=== PATIENT | female | born 1950 | race Caucasian/White ===

== ENCOUNTER 2017-05-05 10:02 | Inpatient (IN) | payer MEDICARE, BC ==
[~2017-05-05] VITALS: Ht 172.7 cm; Wt 85.6 kg
[2017-06-01] VITALS (11 sets, daily range): BP systolic 101–131; BP diastolic 58–71; PULSE 42–80; TEMP 97.8–98
[2017-06-02] VITALS (7 sets, daily range): BP systolic 105–136; BP diastolic 56–91; PULSE 58–81; TEMP 97.7–98.7
[2017-06-02 06:37] LABS: HEMATOCRIT 32.2 % (37.0-47.0)
[2017-06-03 05:00] VITALS: BP 142/60; PULSE 97; TEMP 98.9
[2017-06-03 06:51] LABS: HEMATOCRIT 32.3 % (37.0-47.0); HEMOGLOBIN 10.8 g/dl (12.5-16.0)
[2017-06-03] MEDS ORDERED: XARELTO10 MG PO (07:08)
[2017-06-03] MEDS ORDERED: NORCO 325 MG-7.1 TAB PO (07:10)
[2017-06-03] MEDS ORDERED: ROXICODONE 55 MG/TAB PO (07:11)
[2017-06-03 07:46] VITALS: BP 131/63; PULSE 93; TEMP 99.6
[2017-06-03 11:38] VITALS: BP 125/50; PULSE 78; TEMP 98.9
== END 2017-06-03 14:25 | disposition home or self-care (01) | DRG 470 ==
LOC: JCC 06-01 05:10
PROVIDERS: Orthopaedic Surgery
PROC: 0SRB0JA Replacement of Left Hip Joint with Synthetic Substitute, Uncemented, Open Approach (ICD-10-PCS; principal; 2017-06-01 07:30)
DX: M16.12 Unilateral primary osteoarthritis, left hip (principal); K52.832 Lymphocytic colitis; Z87.19 Personal history of other diseases of the digestive system
CPT/HCPCS: A9284; C1713; C1776; J0690; J1100; J2250; J2274; J2405; J2704; J3010; J7042; J7120

== ENCOUNTER → 2017-05-25 | Outpatient (CLI) | payer MEDICARE, BC | LOC: COL.LAB 14:54 | DX: Z01.812 Encounter for preprocedural laboratory examination (principal) ==

== ENCOUNTER → 2017-10-15 | Outpatient (CLI) | payer MEDICARE, BC ==
[~2017-10-15] MED LIST: NORCO 325 MG-7.1 TAB PO; ROXICODONE 55 MG/TAB PO; XARELTO10 MG PO
== END ==
LOC: MC.RAD 09-17 09:40
DX: Z12.31 Encounter for screening mammogram for malignant neoplasm of breast (principal)

== ENCOUNTER 2021-12-19 11:16 | Day surgery (SDC) | payer MEDICARE, OTHER ==
[~2021-12-19] VITALS: Ht 172.7 cm; Wt 81.1 kg
[~2021-12-19 11:16] MED LIST changes: +MOTRIN 800800 MG/TAB PO; +NORCO 325 MG-51 TAB PO
[2021-12-19 12:04] VITALS: BP 146/88; PULSE 71; TEMP 97.1
[2021-12-19] MEDS ORDERED: NORVASC 5MG5 MG/TAB PO (12:07)
[2021-12-19] MEDS ORDERED: NEURONTIN300 MG/CAP PO ×2 (12:08)
[2021-12-19 13:20] VITALS: BP 124/76; PULSE 72; TEMP 97.4
[2021-12-19 13:35] VITALS: BP 145/74; PULSE 64
[2021-12-19 13:50] VITALS: BP 130/81; PULSE 64
--- NOTE | 2021-12-19 14:00 | NUR ---
1320 RETURNS TO ROOM 3 PER CART. AWAKE, ALERT. AMBULATES TO RECLINER WITH STANDBY ASSIST. VITAL SIGNS OBTAINED. DENIES NAUSEA OR ABD PAIN. IN ROOM. CALL LIGHT AT SIDE. 1330 DR. YEE HERE TO VISIT WITH PATIENT. 1340 DISCHARGE INSTRUCTIONS REVIEWED WITH PATIENT ANDHUSBAND VERBALIZING UNDERSTANDING. COPY PROVIDED IN DISCHARGE FOLDER 1350 TOLERATES PO JUICE AND MUFFIN WITHOUT NAUSEA. 1402 AFTER DRESSING SELF, DISCHARGED PER WHEELCHAIR TO VEHICLE BEING DRIVEN BY
== END 2021-12-19 14:02 | disposition home or self-care (01) ==
LOC: SDCO 11:16
DX: Z12.11 Encounter for screening for malignant neoplasm of colon (principal); K52.832 Lymphocytic colitis; Z86.010 Personal history of colon polyps; K52.89 Other specified noninfective gastroenteritis and colitis; K64.0 First degree hemorrhoids
CPT/HCPCS: J2704; J7120